=== PATIENT | male | born 1970 | race Caucasian/White ===

== ENCOUNTER 2017-02-19 13:09 | Inpatient (IN) | payer OTHER ==
[~2017-02-19] VITALS: Ht 182.9 cm; Wt 102.1 kg
--- NOTE | 2017-02-19 15:46 | NUR ---
Intake Assessment; Patient is a 46 year old male , AOX4, presented to [facility] to detoxify from Heroin, Valium, Xanax. Patient is from [facility] and arrived at intake office at approximately 1500. He is the primary source of information. Patient appears nervous but remained cooperative during interview. Admitting vital signs are as follows; BP 132/62, HR 79, Temperature 96.5, Respirations 18, SPO2 of 96%, weighs 225 lbs and height of 6ft, denies pain. Patient denies allergies and seizure history. Educated patient regarding unit policies and protocols, patient verbalized understanding. Will continue with further assessment when patient is up on the unit.
[2017-02-19] MEDS ORDERED: MAGNESIUM HYDROXIDE 30 ML LIQUID UDC PO PRN (16:30)
[2017-02-19] MEDS ORDERED: ACETAMINOPHEN 325 MG TABLET PO PRN (16:30)
[2017-02-19] MEDS ORDERED: LORAZEPAM 2 MG/1 ML VIAL IM PRN (16:30)
[2017-02-19] MEDS ORDERED: MIRALAX 17 GM POWD.PACK PO PRN (16:30)
[2017-02-19] MEDS ORDERED: MAG HYDROX/AL HYDROX/SIMETH 30 ML LIQUID UDC PO PRN (16:30)
[2017-02-19] MEDS ORDERED: LOPERAMIDE HCL 2 MG CAPSULE PO PRN (16:30)
[2017-02-19] MEDS ORDERED: LORAZEPAM 1 MG TABLET PO PRN ×2 (16:30)
--- NOTE | 2017-02-19 17:00 | NUR ---
Admission note; Patient is a 46 year old male , AOX4, presented to [facility] to detoxify from Heroin, Valium, Xanax. Patient is from [facility] and arrived at intake office at approximately 1500. He is the primary source of information. Patient appears nervous but remained cooperative during interview. Admitting vital signs are as follows; BP 132/62, HR 79, Temperature 96.5, Respirations 18, SPO2 of 96%, weighs 225 lbs and height of 6ft, denies pain. Patient denies allergies and seizure history. Educated patient regarding unit policies and protocols, patient verbalized understanding. Patient is admitted under the care of Dr. Lim to room 319. Discussed substance use history. Patient first started using Heroin when he was 15 year old, progressed to a daily use when he was 20 years old. He previously achieved two years of sobriety from 2154-2237. Currently he reports using heroin 1-2 grams via IV on a daily basis. Last use was on the day of present admission at 1100. He reported to MD that when he does not have heroin available, he will take methadone, last consumed methadone 40 mg the day prior to admission (02/18/17 in the morning). He also reported using benzodiazepines, most commonly alprazolam 1-3 mg on a daily basis, last consumed 1 mg on the morning of present admission at 1000. Patient also reported using Valium approximately 10mg (1-3 pills) , last taken on the day of admission at 0600. He has been to multiple treatment centers in the past, the latest being at [facility] six years ago. At the time of admission, the patient reports residual symptoms of recent heroin and alprazolam use without evidence of withdrawal. Past medical and psychiatric history discussed. Patient reported being diagnosed with anxiety, depression and PTSD. Patient 's PCP is Dr. Hooks. Patient currently lives at [facility] with his room mates. Current COWS is 3 and CIWA of 3. Skin check done with no significant findings. Dr. Lim evaluated patient at intake office. Safety measures in place. Will continue to monitor patient.
--- NOTE | 2017-02-19 17:05 | NUR ---
Additional information; Patient also reported using Marijuana on an intermittent basis. Last used the day of admission with unknown amount.
[2017-02-19] MEDS ORDERED: GABA-534 PO (17:17)
[2017-02-19] MEDS ORDERED: DIAZ10TA4 PO (17:20)
[2017-02-19] MEDS ORDERED: SERT100T PO (17:22)
[2017-02-19 17:26] LABS: BASOPHILS # (AUTO) 0.1 K/uL (0.0-8.0); BASOPHILS % (AUTO) 0.6 % (0.0-2.0); EOSINOPHILS # (AUTO) 0.2 K/uL (0.0-0.7); EOSINOPHILS % (AUTO) 2.3 % (0.0-7.0); HEMOGLOBIN 13.4 G/DL (14.0-18.0); LYMPHOCYTES # (AUTO) 2.3 K/UL (0.8-4.8); LYMPHOCYTES % (AUTO) 24.9 % (20.5-51.5); MEAN CORPUSCULAR HEMOGLOBIN 29.9 UUG (27.0-31.0); MEAN CORPUSCULAR HGB CONC 34 g/dL (32.0-37.0); MONOCYTES # (AUTO) 0.5 K/UL (0.1-1.30); MONOCYTES % (AUTO) 5.2 % (0.0-11.0); PLATELET COUNT (AUTO) 213 K/UL (150-450); RED BLOOD CELL COUNT(AUTO) 4.49 MIL/UL (4.7-6.1); WHITE BLOOD COUNT (AUTO) 9.1 K/UL (4.0-11.2)
[2017-02-19 17:33] LABS: ALANINE AMINOTRANSFERASE 34 U/L (16-63); ALKALINE PHOSPHATASE 67 U/L (50-136); ASPARTATE AMINOTRANSFERASE 18 U/L (15-37); BILIRUBIN,TOTAL 0.2 mg/dL (0.2-1.0); CARBON DIOXIDE 28 mmol/L (21-32); CHLORIDE 103 mmol/L (98-107); CREATININE 1.3 mg/dL (0.6-1.3); GLUCOSE 99 mg/dL (74-106); MAGNESIUM 2.1 mg/dL (1.8-2.4); POTASSIUM 4.1 mmol/L (3.5-5.1); TOTAL PROTEIN, SERUM 7.3 g/dL (6.4-8.2); UREA NITROGEN, BLOOD 16 mg/dL (7-18)
[2017-02-19 17:40] LABS: ETHANOL < 3 MG/DL (0-0)
[2017-02-19 17:41] LABS: THYROID STIMULATING HORMONE 2.105 mIU/mL (0.358-3.740)
[2017-02-19 17:47] LABS: *AMPHETAMINE, URINE NEGATIVE (NEGATIVE); *BARBITURATE, URINE NEGATIVE (NEGATIVE); *CANNABINOID, URINE POSITIVE (NEGATIVE); *COCCAINE, URINE NEGATIVE (NEGATIVE); *OPIATE, URINE POSITIVE (NEGATIVE); *PHENCYCLIDINE SCREEN,URINE NEGATIVE (NEGATIVE)
--- NOTE | 2017-02-19 18:56 | NUR ---
End of shift note; Patient is currently resting with eyes closed, respirations even and unlabored. Patient was evaluated by MD at intake office. All safety measures secured. Met all needs.
--- NOTE | 2017-02-19 19:45 | NUR ---
START OF SHIFT Received report from day shift nurse. Pt is lying in bed resting. He is a 46 yo male admitted to [facility] today for BZD and Opiate dependence. He is A&O and ambulatory. NKA, full code status, and on a regular diet. He has a PMH of PTSD, anxiety, and depression. On admission he reported using Xanax 1-3mg per day, heroin 1-2 grams per day, valium 10mg per day, and methadone intermittently only when heroin is not available. Pt is ordered a 4 day Ativan taper to start tomorrow with a one time order for tonight. Subutex induction possible for 6/ per MD orders. Pt reports anxiety, mild chills, mild stomach discomfort, and mild body aches. Fall precautions in place. Bed is down with call light in reach.
[2017-02-19 20:00] VITALS: BP 108/64
[2017-02-19] MEDS ORDERED: LORAZEPAM 1 MG TABLET PO SCH (21:00)
[2017-02-19] MEDS: GABAPENTIN 300 MG CAPSULE PO SCH (21:23)
[2017-02-20] VITALS (8 sets, daily range): BP systolic 95–129; BP diastolic 69–90
[2017-02-20] MEDS: CLONIDINE HCL 0.1 MG TABLET PO PRN ×2 (03:10→15:46)
[2017-02-20] MEDS: IBUPROFEN 600 MG TABLET PO PRN (03:11)
[2017-02-20] MEDS: LOPERAMIDE HCL 2 MG CAPSULE PO PRN (03:20)
--- NOTE | 2017-02-20 03:20 | NUR ---
PRN Clonidine, Ativan, Motrin, and Imodium administered Pt is awake in bed and reports feeling anxious and restless with chills, leg pain, headache, stomach discomfort, and diarrhea. He is observed to have restless legs and appears agitated. CIWA 16 and COWS 11. PRN Clonidine, Ativan, Motrin, and Imodium administered.
--- NOTE | 2017-02-20 04:20 | NUR ---
PRN Clonidine, Ativan, and Motrin reassessment PRN Clonidine, Ativan, and Motrin effective. Pt is lying comfortably in bed resting with eyes closed. Respirations even and unlabored. COWS 2 and CIWA 2. Safety measures in place.
--- NOTE | 2017-02-20 07:14 | NUR ---
END OF SHIFT Report provided to day shift nurse. Pt is lying in bed resting. He is a 46 yo male admitted to [facility] today for BZD and Opiate dependence. He is A&O and ambulatory. NKA, full code status, and on a regular diet. He has a PMH of PTSD, anxiety, and depression. On admission he reported using Xanax 1-3mg per day, heroin 1-2 grams per day, valium 10mg per day, and methadone intermittently only when heroin is not available. Pt is ordered a 4 day Ativan taper to start today. One time Ativan order administered at 2100. Pt woke up and PRN Ativan, Clonidine, Motrin, and Imodium administered. COWS 2 and CIWA 2 after PRN medications. He was able to fall back to sleep after medications. Subutex induction possible for today per MD orders. He drank 500mL and slept for 9 hours. Fall and seizure precautions in place. Bed is down with call light in reach.
--- NOTE | 2017-02-20 07:52 | NUR ---
Start of shift note; Patient is AOX4. Patient is a 46 year old male admitted on 02/19/17 for Opiate/ Benzodiazepine withdrawals. Patient received PRN medications last night noted to be effective. All safety measures secured. Patient is on fall and seizure precaution. Will continue to monitor patient.
[2017-02-20] MEDS ORDERED: TUBERCULIN,PURIF.PROT.DERIV. 5 TU/0.1 ML TEST ID ONE (09:00)
[2017-02-20] MEDS: SERTRALINE HCL 100 MG TABLET PO SCH (09:32)
[2017-02-20] MEDS: MULTIVITAMINS,THERAPEUTIC TABLET PO SCH (09:32)
[2017-02-20] MEDS: GABAPENTIN 300 MG CAPSULE PO SCH ×3 (09:32→20:37)
[2017-02-20] MEDS: LORAZEPAM 1 MG TABLET PO SCH ×3 (09:32→20:37)
[2017-02-20 14:09] LABS: HEPATITIS B SURFACE AG Negative (Negative)
--- NOTE | 2017-02-20 15:46 | NUR ---
PRN medication; Patient is complaining of agitation and chills. PRN Clonidine 0.1mg PO as per MD order. Will continue to monitor patient.
--- NOTE | 2017-02-20 16:46 | NUR ---
Re-assessment; Patient appears calm and comfortable. PRN medication is effective.
--- NOTE | 2017-02-20 18:32 | NUR ---
End of shift note; Patient is AOX4. Patient is a 46 year old male admitted for Opiate and Benzo dependence. Patient was placed on Ativan taper no adverse reactions noted. To avoid precipitative withdrawal, notify MD when patient is in need of Subutex dose/taper. Patient's current COWS score is 8 and CIWA score of 6. Patient is on fall and seizure precaution. All safety measures secured. Met all needs.
--- NOTE | 2017-02-20 19:50 | NUR ---
START OF SHIFT Received report from day shift nurse. Pt is lying in bed resting. He is a 46 yo male admitted to [facility] today for BZD and Opiate dependence. He is A&O and ambulatory. NKA, full code status, and on a regular diet. He has a PMH of PTSD, anxiety, and depression. On admission he reported using Xanax 1-3mg per day, heroin 1-2 grams per day, valium 10mg per day, and methadone intermittently only when heroin is not available. Pt started a 4 day Ativan taper today. MD to be contacted when COWS is appropriate to start Subutex. Pt presents with chills, body aches, anxiety, and restlessness. Fall precautions in place. Bed is down with call light in reach.
[2017-02-20] MEDS ORDERED: BUPRENORPHINE HCL 2 MG TAB.SUBL SL ONE ×2 (21:30→21:31)
--- NOTE | 2017-02-20 21:30 | NUR ---
MD Communication Pt is restless in bed with chills, leg aches, and anxiety. COWS 13 and CIWA [address] Lim with orders for one time Subutex. Pt refused the medication and any other PRN medication at this time. Explained to pt. the risks of refusal and benefits of the medication for management of withdrawal symptoms x3. Pt verbalized understanding and states, "I've been doing this for 30 years". MD cho
--- NOTE | 2017-02-20 22:30 | NUR ---
MD Communication Pt is restless in bed with chills, leg aches, hot and cold flashes and anxiety. He is noted to have nasal stuffiness and flushing. COWS 13 and CIWA 12. He continues to refuse Subutex and is requesting Gabapentin because "I know that works". Contacted Dr. Lim with orders for one time Gabapentin. Pt then refused the medication and is lying in bed resting. Explained the importance of medications compliance for the management of withdrawal symptoms. Advised pt. to use call light if necessary. Safety measures in place.
[2017-02-20] MEDS ORDERED: GABAPENTIN 300 MG CAPSULE PO ONE (22:45)
[2017-02-20] MEDS ORDERED: GABAPENTIN 300 MG CAPSULE ONE (22:46)
[2017-02-21] VITALS (7 sets, daily range): BP systolic 115–128; BP diastolic 70–83
[2017-02-21] MEDS: ONDANSETRON 4 MG/2 ML VIAL IM PRN (02:01)
[2017-02-21] MEDS: CLONIDINE HCL 0.1 MG TABLET PO PRN ×2 (02:02→21:07)
--- NOTE | 2017-02-21 02:05 | NUR ---
PRN Zofran, Clonidine, and one time Gabapentin Pt woke up and states "I can't take this". He is restless in bed, with nasal stuffiness, chills, hot and cold flashes, and nausea. COWS score 15 and CIWA 12. PRN Zofran IM and Clonidine administered. Pt requested to have his onetime order of Gabapentin that was refused earlier. MD cho.
[2017-02-21] MEDS: diphenhydrAMINE 50 MG CAPSULE PO PRN (02:15)
--- NOTE | 2017-02-21 02:17 | NUR ---
PRN Benadryl and one time Subutex Pt is restless in bed, with nasal stuffiness, chills, hot and cold flashes, and nausea. His arms and legs are kicking out in discomfort. COWS score 15 and CIWA 12. He reports "I think I'm ready for the subutex now". Administered one time order of Subutex that pt refused earlier and Benadryl. aware.
--- NOTE | 2017-02-21 02:35 | NUR ---
PRN Zofran IM reassessment PRN Zofran effective. Pt reports relief of nausea.
--- NOTE | 2017-02-21 03:30 | NUR ---
PRN Clonidine, Benadryl, one time gabapentin, and onetime subutex reassessment Clonidine, Benadryl Gabapentin, and Subutex effective. Pt is lying in bed resting with eyes closed. Respirations even and unlabored. Safety measures in place.
--- NOTE | 2017-02-21 07:15 | NUR ---
END OF SHIFT Report provided to day shift nurse. Pt is lying in bed resting. He is a 46 yo male admitted to [facility] today for BZD and Opiate dependence. He is A&O and ambulatory. NKA, full code status, and on a regular diet. He has a PMH of PTSD, anxiety, and depression. On admission he reported using Xanax 1-3mg per day, heroin 1-2 grams per day, valium 10mg per day, and methadone intermittently only when heroin is not available. Pt is ordered started a 4 day Ativan taper on 02/20. contacted when pt presented with s/s of opiate withdrawal. COWS was 15 and CIWA 12. PRN Clonidine, PRN Zofran IM, PRN Benadryl, onetime Gabapentin, and onetime Subutex. Last COWS 3 and CIWA 3. He drank 1000mL and slept for 7 hours. Bed is down with call light in reach.
--- NOTE | 2017-02-21 07:20 | NUR ---
Start of Shift Report from night nurse: Pt is a 46 y/o male here for Opiates r/t Heroin 1-2g/d Benzo r/t Xanax 1-3mg PO/d, Valium 10mg PO/d and Methamphetamine unknown dose with occs. use; 4 day Ativan taper ordered and Subutex orders with parameters and to call Dr. Lim With cows >/+ 12. Pt is a full code, regulr diet, NKA, fall and seizure precautions carried out as ordered. Hhx: PTSD, Anxiety, Depression and Multiple relapses at many detox centers. V/S stable. Skin is intact. PRN Subutex with COWS 15-12, gabapentin, Zofran IM, Clonidine and Benadryl to help the pt w/d and to sleep. Last COWS 3 CIWA 3. No new orders or recommendations endorsed to me. Pt is asleep in room. Will cont. to monitor the pt.
[2017-02-21] MEDS: LORAZEPAM 1 MG TABLET PO SCH ×4 (09:25→21:08)
[2017-02-21] MEDS: GABAPENTIN 300 MG CAPSULE PO SCH ×3 (09:25→21:07)
[2017-02-21] MEDS: MULTIVITAMINS,THERAPEUTIC TABLET PO SCH (09:25)
[2017-02-21] MEDS: SERTRALINE HCL 100 MG TABLET PO SCH (09:25)
[2017-02-21] MEDS ORDERED: BUPRENORPHINE HCL 2 MG TAB.SUBL SL PRN (15:00)
[2017-02-21] MEDS ORDERED: LORAZEPAM 1 MG TABLET PO ONE (17:45)
--- NOTE | 2017-02-21 18:49 | NUR ---
Medication Gxh-Afreovubppsehj-Gjhiel ONCE At 1700H during medication administration pt is in room anxious, flushed, frequent yawning, numbness and tingling, V/S stable, COW 9 CIWA 8 and pt states that he feels as if he needs a stronger dose of Ativan and that the Ativan 1mg scheduled at 1700h "probably won't be effective" I educated the pt on Subutex PRN yet he refused it. I notified Dr. Lim and new order for Ativan 2mg PO ONCE. I attempted to give it to the pt at 1844 and he was asleep in his room, so NON-Administration. Will endorse to the night nurse.
--- NOTE | 2017-02-21 19:33 | NUR ---
End of Shift Report to night nurse: Pt is a 46 y/o male here for Opiates r/t Heroin 1-2g/d , Benzo r/t Xanax 1-3mg PO/d, Valium 10mg PO/d and Methamphetamine unknown dose with occs. use; 4 day Ativan taper ordered and Subutex orders with parameters and to call Dr. Lim With cows >/+ 12. Pt is a full code, regular diet, NKA, fall and seizure precautions carried out as ordered. Hhx: PTSD, Anxiety, Depression and Multiple relapses at many detox centers. V/S stable. Skin is intact. No PRN's given during my shift. Pt refused to attend group therapy. No hallucinations, delusions or suicidal ideations noted. Last COWS 9 CIWA 8.
--- NOTE | 2017-02-21 20:30 | NUR ---
START OF SHIFT NOTE Pt is a 46 y/o male admitted for Heroin, Xanax, Valium, and Methadone dependence and use. Pt has NKA but reported a PMH of PTSD, anxiety, and depression. Per day shift nurse pt was placed on a 4 day Ativan taper and is tolerating medication well with no s/e or a/re reported. Pt didn't receive any PRNS during the day shift. Last COW: 9 and CIWA: 8 (1600). At this time the pt has just returned from having a smoke break and stated " I've been okay today." Pt denies any other pain/discomfort. Pt was encouraged to notify staff of any changes in condition or of any concerns. Pt verbalized an understanding. All safety measures in place; side rails up x 2, bed locked and in low position, and call light within reach. Will continue to monitor.
--- NOTE | 2017-02-21 21:07 | NUR ---
CLONIDINE PRN ADMINISTRATION Pt stated " I'm not comfortable. I'm sweating. I feel anxious. I just need something to help me relax." Clonidine 0.1 mg PO PRN was given Pt was encouraged to notify staff of any changes in condition or of any concerns. Pt verbalized an understanding. All safety measures in place. Will monitor for effectiveness.
--- NOTE | 2017-02-21 22:07 | NUR ---
CLONIDINE PRN REASSESSMENT Pt stated " I feel okay, but I don't know if it's going to last. I'm trying to stay away from Subutex." PRN effective. Pt was encouraged to notify staff of any changes in condition or of any concerns. Pt verbalized an understanding. All safety measures in place. Will continue to monitor.
[2017-02-22] VITALS: BP 101/66
[2017-02-22] MEDS: diphenhydrAMINE 50 MG CAPSULE PO PRN (00:14)
[2017-02-22] MEDS: METHOCARBAMOL 750 MG TABLET PO PRN (00:14)
--- NOTE | 2017-02-22 00:15 | NUR ---
ROBAXIN AND BENADRYL PRN ADMINISTRATION Pt stated " Can I have something to help me sleep and take away my body aches?" Benadryl 50 mg PO PRN and Robaxin 750 mg PO PRN was given. Pt was encouraged to notify staff of any changes in condition or of any concerns. Pt verbalized an understanding. All safety measures in place. Will monitor for effectiveness.
--- NOTE | 2017-02-22 01:15 | NUR ---
ROBAXIN AND BENADRYL PRN REASSESSMENT Pt is asleep in bed with no signs of discomfort/distress noted. Breathing is even and unlabored. Pt easily aroused by light touch. Pt stated " I feel okay right now, but it's not going to last I can tell. I'm going back to sleep." PRNS effective. All safety measures in place. Will continue to monitor.
--- NOTE | 2017-02-22 03:49 | NUR ---
SUBUTEX PRN ADMINISTRATION Pt is notably agitated and reports having withdrawal symptoms such as sweating, nausea, stuffy nose, teary eyes, and tremors. Pt's COW score at this time is 12. Subutex 4 mg PO PRN was given. Pt was encouraged to notify staff of any changes in condition or of any concerns. Pt verbalized an understanding. All safety measures in place. Will monitor for effectiveness.
[2017-02-22 04:00] VITALS: BP 128/86
--- NOTE | 2017-02-22 04:49 | NUR ---
SUBUTEX PRN REASSESSMENT Pt stated " I feel a lot better than I did a while ago. I can finally sleep now." COW score at this time: 6. PRN effective. Will continue to monitor.
--- NOTE | 2017-02-22 07:09 | NUR ---
END OF SHIFT NOTE Pt is a 46 y/o male admitted for Heroin, Xanax, Valium, and Methadone dependence and use. Pt has NKA but reported a PMH of PTSD, anxiety, and depression. Pt was placed on a 4 day Ativan taper and is tolerating medication well with no s/e or a/re reported. Pt received Benadryl 50 mg PO PRN, Robaxin 750 mg PO PRN, Clonidine 0.1 mg PO PRN, and Subutex 4 mg PO PRN during the shift. Pt slept for a total of 6 hours. Last COW: 6 (0449) and CIWA: 10 (0400). All safety measures in place; side rails up x 2, bed locked and in low position, and call light within reach. Will endorsed to the oncoming nurse.
--- NOTE | 2017-02-22 07:10 | NUR ---
Start of Shift Notes: Received patient in his room. Alert and oriented x 4. Able to make his needs known. Respirations even and unlabored. No SOB noted. Skin warm and dry to touch. Abdomen soft and non-distended with (+) BS in all 4 quadrants. No complains of N/V/D or constipation noted. Bladder non-distended. No complains of dysuria noted. Voids independently. Ambulatory ad abel with steady gait. Patient is a 46 year old male admitted for opiate and BZO dependence who was placed on a 4-day Ativan taper and PRN Subutex per COWS score. No adverse reactions noted. Has past medical hx of PTSD, depression and anxiety. NKA. FULL CODE. Regular diet. On fall and seizure precautions. Educated patient on his current plan of care and his medication regimen. Encouraged oral fluid intake and encouraged group participation to learn new skills to prevent relapse. Will continue to monitor closely.
[2017-02-22 08:00] VITALS: BP 127/82
[2017-02-22] MEDS: SERTRALINE HCL 100 MG TABLET PO SCH (09:08)
[2017-02-22] MEDS: MULTIVITAMINS,THERAPEUTIC TABLET PO SCH (09:09)
[2017-02-22] MEDS: GABAPENTIN 300 MG CAPSULE PO SCH ×4 (09:09→21:40)
[2017-02-22] MEDS: LORAZEPAM 1 MG TABLET PO SCH ×3 (09:09→21:40)
[2017-02-22] MEDS ORDERED: BUPRENORPHINE HCL 2 MG TAB.SUBL SL PRN (11:30)
[2017-02-22 12:00] VITALS: BP 135/92
--- NOTE | 2017-02-22 13:00 | NUR ---
Mid Shift Notes: Patient is socializing in group at this time. COWS 6/CIWA 6.
[2017-02-22] MEDS: BUPRENORPHINE HCL 2 MG TAB.SUBL SL PRN (15:36)
--- NOTE | 2017-02-22 15:36 | NUR ---
Subutex 2 mg SL given: Patient noted with pupil dilation, yawning, agitation, anxiety, difficulty staying still and restlessness, fine tremors also noted. COWS 10. PRN Subutex 2 mg SL given as ordered. Will monitor for effectiveness.
[2017-02-22 16:00] VITALS: BP 135/92
--- NOTE | 2017-02-22 16:06 | NUR ---
Re-assessment: COWS 5. PRN Subutex 2 mg SL was effective in reducing patient's withdrawal symptoms.
--- NOTE | 2017-02-22 18:48 | NUR ---
MD Communication: Patient states that PRN Benadryl is not effective with his sleep. Notified MD Parikh. Telephone orders obtained to DC Benadryl PRN and start patient on Trazodone 50 mg PO QHS PRN for sleep. Orders noted and carried out. MD is driving and unable to enter orders at this time.
--- NOTE | 2017-02-22 18:53 | NUR ---
End of Shift Notes: Patient is a 46 year old male admitted for opiate and BZO dependence who was placed on a 4-day Ativan taper and PRN Subutex as ordered. Prior to admission, patient was using 1-2 grams of opiate, 1-3 grams of BZO, 10 mg of Valium and intermittent use of Methadone. VS monitored closely q 4 hours. No significant abnormalities noted. Withdrawal symptoms were closely monitored. Patient presented with anxiety, agitation, tremor, sweats, and mild nausea. Offered Zofran but refused. Initial COWS 7/CIWA 9. Medicated patient with Subutex 2 mg SL as ordered. At 1536 due to COWS 10 with help after 30 minutes. Last COWS 5/CIWA 4. Participated in group and therapy sessions due to his withdrawal symptoms. Encouraged socialization and support provided. All needs met and attended. Will continue to monitor closely. Addendum: 02/22/17 at 1854 by CHELLY FREEMAN LVN Clarification: Participated in group and therapy sessions despite his withdrawal symptoms.
[2017-02-22 20:00] VITALS: BP 133/89
--- NOTE | 2017-02-22 20:30 | NUR ---
START OF SHIFT NOTE Pt is a 46 y/o male admitted for Heroin, Xanax, Valium, and Methadone dependence and use. Pt has NKA but reported a PMH of PTSD, anxiety, and depression. Per day shift nurse pt continues on a 4 day Ativan taper and is tolerating medication well with no s/e or a/re reported. Pt received Subutex 2 mg PO PRN during the day shift. Last COW: 5 and CIWA: 4 (1600). At this time the pt has just returned to his room and stated " Today is much better. I was grumpy yesterday. The Subutex helped." Pt denies any pain/discomfort. Pt was encouraged to notify staff of any changes in condition or of any concerns. Pt verbalized an understanding. All safety measures in place; side rails up x 2, bed locked and in low position, and call light within reach. Will continue to monitor.
[2017-02-23] VITALS: BP 134/84
[2017-02-23] MEDS: CLONIDINE HCL 0.1 MG TABLET PO PRN ×3 (01:44→22:03)
--- NOTE | 2017-02-23 01:44 | NUR ---
CLONIDINE PRN ADMINISTRATION Pt stated " Can I have my Clonidine? I'm starting to sweat again and I feel anxious." Clonidine 0.1 mg PO PRN was given. Pt was encouraged to notify staff of any changes in condition or of any concerns. Pt verbalized an understanding. All safety measures in place. Will monitor for effectiveness.
--- NOTE | 2017-02-23 02:44 | NUR ---
CLONIDINE PRN REASSESSMENT Pt stated " I feel much better." PRN effective. Pt was encouraged to notify staff of any changes in condition or of any concerns. Pt verbalized an understanding. All safety measures in place. Will continue to monitor.
--- NOTE | 2017-02-23 04:00 | NUR ---
COW, CIWA, AND VITALS REFUSED Pt refused to be assessed and have vitals taken at this time. Pt was encouraged x 3 with risks and benefits explained, but the pt still refused. All safety measures in place. Will continue to monitor. Addendum: 02/23/17 at 0443 by EDEL NAPIER LVN Amended: Links added.
--- NOTE | 2017-02-23 07:20 | NUR ---
Start of Shift Report from night nurse: Pt is a 46 y/o male here for Opiates r/t Heroin 1-2g/d Benzo r/t Xanax 1-3mg PO/d, Valium 10mg PO/d and Methamphetamine unknown dose with occs. use; 4 day Ativan taper ordered and Subutex orders with parameters and to call Dr. Lim With COWS >/+ 12. Pt is a full code, regular diet, NKA, fall and seizure precautions carried out as ordered. Hhx: PTSD, Anxiety, Depression & Multiple relapses at many detox centers. V/S stable. Skin is intact. Last COWS 4 CIWA 3. No new orders or recommendations endorsed to me. Pt is asleep in room. Will cont. to monitor the pt.
--- NOTE | 2017-02-23 07:39 | NUR ---
END OF SHIFT NOTE Pt is a 46 y/o male admitted for Heroin, Xanax, Valium, and Methadone dependence and use. Pt has NKA but reported a PMH of PTSD, anxiety, and depression. Pt continues on a 4 day Ativan taper and is tolerating medication well with no s/e or a/re reported. Pt received Clonidine 0.1 mg PO PRN during the shift. Pt slept for a total of 4 hours. Last COW: 4 CIWA: 3 (0000). All safety measures in place; side rails up x 2, bed locked and in low position, and call light within reach. Will endorsed to the oncoming nurse
[2017-02-23 08:00] VITALS: BP 147/87
[2017-02-23] MEDS: ONDANSETRON 4 MG/2 ML VIAL IM PRN (08:10)
[2017-02-23] MEDS: BUPRENORPHINE HCL 2 MG TAB.SUBL SL PRN (08:17)
[2017-02-23] MEDS: MULTIVITAMINS,THERAPEUTIC TABLET PO SCH (08:17)
[2017-02-23] MEDS: SERTRALINE HCL 100 MG TABLET PO SCH (08:17)
[2017-02-23] MEDS: GABAPENTIN 300 MG CAPSULE PO SCH ×4 (08:17→22:03)
[2017-02-23] MEDS: LORAZEPAM 1 MG TABLET PO SCH ×2 (08:17→22:02)
--- NOTE | 2017-02-23 08:23 | NUR ---
PRN Medication Administration Pt is now awake in his room with severe anxiety & irritability, sitting on edge of bed restless with rocking, c/o N/V, tremors observed, flushed, nasal congestion, numbness and tingling, V/S stable, COWS 11 CIWA 11; PRN Zofran 4mg IM and Subutex 2mg SL given with scheduled Ativan 1mg and other medications all given as ordered. Will reassess in 30 minutes-1H.
[2017-02-23] MEDS: LOPERAMIDE HCL 2 MG CAPSULE PO PRN (09:11)
--- NOTE | 2017-02-23 09:20 | NUR ---
Reassessment & PRN Medication Administration Pt c/o large bout of diarrhea with an incontinent episode but denies nausea, very anxiety and irritable, upset re: his diarrhea, V/S stable, COWS 16; I notified Dr. Lim, Zofran is effective, PRN Imodium 4mg given PRN as ordered for the first bout of diarrhea. No new orders at this time. Will reassess in 1H.
[2017-02-23] MEDS ORDERED: BUPRENORPHINE HCL 2 MG TAB.SUBL SL ONE (10:45)
--- NOTE | 2017-02-23 10:52 | NUR ---
New Order Subutex, Non-Medication Administration, Reassessment, PRN Medication Administration New Order for Subutex 4mg ONCE s/p Dr. Lim's evaluations, yet pt is very agitated uncooperative and angry during and after explaining the New Order is "Subutex 4mg ONCE" from Dr. Lim and that there is not scheduled Subutex 4mg but only the Subutex 2mg PRN which has to be with in parameters of his condition. The pt refused the Subutex 4mg ONCE dose and states that he only wants the Subutex 2mg PRN Q4H when the dose is next scheduled to be given. Pt states that he feels as if he is going to have another bout of diarrhea; PRN Imodium 2mg given PRN as ordered and notified Dr. Lim of pt's refusal. Will reassess in 1H.
[2017-02-23 12:00] VITALS: BP 127/76
--- NOTE | 2017-02-23 12:00 | NUR ---
Reassessment Pt denies diarrhea and no N/V noted; 2nd dose of PRN Imodium 2mg is effective. Will cont to monitor the pt.
[2017-02-23] MEDS ORDERED: BUPRENORPHINE HCL 2 MG TAB.SUBL SL PRN ×2 (12:15)
[2017-02-23] MEDS ORDERED: LORAZEPAM 1 MG TABLET PO PRN (12:15)
[2017-02-23] MEDS: ONDANSETRON ODT 4 MG TAB.RAPDIS SL PRN (12:51)
[2017-02-23 16:00] VITALS: BP 153/101
--- NOTE | 2017-02-23 16:45 | NUR ---
PRN Medication Administration Pt is in his room with moderate anxiety, c/o ab cramps and BP is 153/101 HR 90; PRN Clonidine 0.1mg and Bentyl 20mg given PRN as ordered with scheduled gabapentin. Will reassess in 1H.
[2017-02-23] MEDS: DICYCLOMINE HCL 20 MG TABLET PO PRN (16:55)
--- NOTE | 2017-02-23 17:25 | NUR ---
Reassessment Pt is getting ready to go for dinner, BP is stable and pt denies stomach cramps; Clonidine and Bentyl are effective. Will cont. to monitor the pt.
--- NOTE | 2017-02-23 18:54 | NUR ---
End of Shift Report to night nurse: Pt is a 46 y/o male here for Opiates r/t Heroin 1-2g/d , Benzo r/t Xanax 1-3mg PO/d, Valium 10mg PO/d and Methamphetamine unknown dose with occs. use; 4 day Ativan taper ordered and Subutex orders with parameters and to call Dr. Lim With cows >/+ 12. Pt is a full code, regular diet, NKA, fall and seizure precautions carried out as ordered. Hhx: PTSD, Anxiety, Depression and Multiple relapses at many detox centers. BP is elevated at 153/101 so PRN Clonidine 0.1mg given at 1645 with PRN Bentyl 20mg for stomach cramps . PRN: Subutex 2mg given with PRN Zofran 4mg IM with COWS 11. PRN Imodium 4mg given this morning at 0911 for large bout of diarrhea, PRN Imodium 2mg given for another small bout 1052a. Pt denies chest pain and no SOB during my shift. Skin is intact. Pt was excused from group activity and group therapy r/t lethagy and weakness. No hallucinations, delusions or suicidal ideations noted. Last COWS 5 CIWA 5.
--- NOTE | 2017-02-23 19:15 | NUR ---
START OF SHIFT NOTE : Pt is a 46 y/o male here for Opiates r/t Heroin 1-2g/d , Benzo r/t Xanax 1-3mg PO/d, Valium 10mg PO/d and Methamphetamine unknown dose with occs. use; 4 day Ativan taper ordered and Subutex orders with parameters and to call Dr. Lim With cows >/+ 12. Pt is a full code, regular diet, NKA, fall and seizure precautions carried out as ordered. Pt denies chest pain and no SOB during my shift. Skin is intact. Pt was excused from group activity and group therapy r/t lethargy and weakness. No hallucinations, delusions or suicidal ideations noted. Pt. is smoking with other clients right now. . All safety measures in the place by hospital policy: Call light within reach; bed locked and in the lowest position; padded rails up x 2. Will continue to monitor and offer help.
[2017-02-23 20:00] VITALS: BP 137/95
--- NOTE | 2017-02-23 21:00 | NUR ---
PRN TYLENOL, TRAZADONE Pt. complains of sleeplessness and flashes. PRN COLONIDINE, TRAZODONE given as ordered. All safety measures in the place by hospital policy: Call light within reach; bed locked and in the lowest position; padded rails up x 2. Will continue to monitor and offer help.
--- NOTE | 2017-02-23 21:55 | NUR ---
REASSESSMENT CLONIDINE, TRAZODONE Pt. is sleeping, RR=16, unlabored and even. . All safety measures in the place by hospital policy: Call light within reach; bed locked and in the lowest position; padded rails up x 2. Will continue to monitor and offer help.
[2017-02-23] MEDS: TRAZODONE 50 MG TABLET PO PRN (22:03)
--- NOTE | 2017-02-24 06:44 | NUR ---
END OF SHIFT NOTE : Pt is a 46 y/o male here for Opiates r/t Heroin 1-2g/d , Benzo r/t Xanax 1-3mg PO/d, Valium 10mg PO/d and Methamphetamine unknown dose with occ. use; 4 day Ativan taper ordered and Subutex orders with parameters and to call Dr. Lim With cows >/+ 12. Pt is a full code, regular diet, NKA, fall and seizure precautions carried out as ordered. Pt denies chest pain and no SOB during my shift. Skin is intact. Pt remains compliant with the treatment plan. PRN CLONIDINE, TRAZODONE were given during my shift. V/S remain WNL. RR=16, even and unlabored, lungs clear upon auscultation, abdomen soft and non- distended. Pt denies nausea, vomiting and diarrhea. LAST CIWA=3 ,COWS=2 at 0400 , INTAKE=1,355 ml, voided x 2, slept 7 hours. All safety measures in the place by hospital policy: Call light within reach; bed locked and in the lowest position; padded rails up x2. Will continue to monitor and offer help.
--- NOTE | 2017-02-24 07:53 | NUR ---
START OF SHIFT NOTE Received report from night nurse, 46 year old male admitted for BENZO and Opiate dependence. NKA, full code status, and on a regular diet. Pt has a PMH of PTSD, anxiety, and depression. On admission Pt reported using Xanax 1-3mg per day, heroin 1-2 grams per day, Valium 10mg per day, and methadone intermittently only when heroin is not available. Pt is ordered started a 4 day Ativan taper and notify MD when pt presented with s/s of opiate withdrawal. Per endorsement pt received PRN Trazodone/Clonidine effective per night nurse. Last CIWA-3, COWS-2, slept for 7 hours. Patient received in room, awake alert and oriented x4, educated regarding plan of care and medication regimen for the day with good verbal understanding. Safety measures in place. call light kept with in reach, will continue to monitor.
[2017-02-24 08:00] VITALS: BP 105/70
[2017-02-24] MEDS: MULTIVITAMINS,THERAPEUTIC TABLET PO SCH (08:32)
[2017-02-24] MEDS: GABAPENTIN 300 MG CAPSULE PO SCH ×4 (08:32→21:42)
[2017-02-24] MEDS: SERTRALINE HCL 100 MG TABLET PO SCH (08:33)
[2017-02-24] MEDS: HYDROXYZINE PAMOATE 25 MG CAPSULE PO PRN (08:41)
[2017-02-24] MEDS: ONDANSETRON ODT 4 MG TAB.RAPDIS SL PRN ×2 (08:41→15:11)
[2017-02-24] MEDS: METHOCARBAMOL 750 MG TABLET PO PRN (08:41)
--- NOTE | 2017-02-24 08:41 | NUR ---
PRN TYLENOL, ZOFRAN,ROBAXIN,VISTARIL Pt. complains of nausea no emesis reported by the pt, muscle aches, headache, anxiety, Non pharmacological intervention ineffective. Administered PRN Zofran, Tylenol, Robaxin, Vistaril as ordered. All safety measures in the place by hospital policy: Call light within reach; bed locked and in the lowest position; padded rails up x 2. Will continue to monitor and reassess the pt. Addendum: 02/24/17 at 1103 by IVONNE EASLEY LVN Headache-12/24.
--- NOTE | 2017-02-24 09:11 | NUR ---
MARIANNA REASSESSMENT Upon reassessment pt reported medication effective nausea improved. Will cont to monitor.
--- NOTE | 2017-02-24 09:41 | NUR ---
REASSESSMENT Upon reassessment pt reported medications were effective feeling less anxious, muscle cramps , headache 09/25. Will cont to monitor.
[2017-02-24 12:00] VITALS: BP 130/82
[2017-02-24] MEDS: IBUPROFEN 600 MG TABLET PO PRN (12:15)
--- NOTE | 2017-02-24 12:15 | NUR ---
PRN MOTRIN Pt. complains of general body aches Non pharmacological intervention ineffective. Administered PRN Motrin as ordered. All safety measures in the place by hospital policy: Call light within reach; bed locked and in the lowest position; padded rails up x 2. Will continue to monitor and reassess the pt. Addendum: 02/24/17 at 1416 by IVONNE EASLEY LVN pt reported pain scale 4/10
--- NOTE | 2017-02-24 13:15 | NUR ---
REASSESSMENT Upon reassessment pt reported medications were effective body aches subside 10/26. Will cont to monitor.
[2017-02-24 13:30] LABS: *AMPHETAMINE, URINE NEGATIVE (NEGATIVE); *BARBITURATE, URINE NEGATIVE (NEGATIVE); *CANNABINOID, URINE POSITIVE (NEGATIVE); *COCCAINE, URINE NEGATIVE (NEGATIVE); *OPIATE, URINE POSITIVE (NEGATIVE); *PHENCYCLIDINE SCREEN,URINE NEGATIVE (NEGATIVE)
[2017-02-24] MEDS ORDERED: BUPRENORPHINE HCL 2 MG TAB.SUBL SL ONE ×2 (14:30→15:30)
[2017-02-24] MEDS ORDERED: LORAZEPAM 1 MG TABLET PO ONE ×2 (14:30→15:45)
[2017-02-24] MEDS ORDERED: KETOROLAC TROMETHAMINE 30 MG INJ IM PRN (15:00)
[2017-02-24] MEDS: BACLOFEN 20 MG TABLET PO SCH ×2 (15:00→21:42)
--- NOTE | 2017-02-24 15:11 | NUR ---
PRN ZOFRAN Pt c/o nausea, PRN Zofran administered as ordered. Will cont to monitor.
--- NOTE | 2017-02-24 15:41 | NUR ---
REASSESSMENT Pt reported medication effective nausea improved no emesis noted.
[2017-02-24 16:00] VITALS: BP 134/81
--- NOTE | 2017-02-24 16:00 | NUR ---
communication Pt noted to have a CIWA of 20 and states that he has hallucinations, Dr Lim and Dr Cervantes notified. Dr Lim ordered 1x ativan 2mg PO. Dr Cervantes ordered seroquel 25mg PO Q4H PRN hallucinations. Orders entered, unable to enter orders. Addendum: 02/24/17 at 1936 by JEEVAN CHOWDHURY RN Pt placed on a 1:1 for safety.
[2017-02-24] MEDS ORDERED: QUETIAPINE FUMARATE 25 MG TABLET PO PRN (16:15)
--- NOTE | 2017-02-24 17:00 | NUR ---
REASSESSMENT Pt reported medication effective no hallucination, anxiety decreased, able to site still, CIWA noted -5. Will cont to monitor.
--- NOTE | 2017-02-24 18:30 | NUR ---
1:1 D/C Pt reported that " I am feeling fine not hearing or seeing anything" Pt noted walking around with steady gait. CIWA noted-5. Discontinued 1:1 MD notified. All safety measures in place. Will con to monitor.
[2017-02-24] MEDS ORDERED: NAPHAZOLINE/PHENIR OPHT DROP 15 ML BOTTLE EACHEYE PRN (19:00)
--- NOTE | 2017-02-24 19:15 | NUR ---
Start of Shift Patient Received. Patient is in activities room participating in group meeting. Patient is a 46 year old male, admitted on 02/19/17 for Opiate and Benzo Withdrawal, under the care of Dr. Lim. Patient received a 4 day Ativan taper with orders to notify MD for increased signs of Opiate withdrawal. Patient verbalizes no known allergies, full code, following a regular diet, placed on fall and seizure precautions, skin noted intact. Past medical history noted as PTSD, Anxiety, and Depression. Patient was given PRN Zofran X2, Tylenol, Robaxin, and Vistaril, and Motrin, and Ix Dose of Ativan. All PRN Medications noted to be effective. Patient discharge orders are tentative for tomorrow 02/25/17 afternoon. All needs attended to promptly. Will continue plan of care as ordered.
--- NOTE | 2017-02-24 19:24 | NUR ---
END OF SHIFT NOTE Gave report to night nurse, 46 year old male admitted for BENZO and Opiate dependence. NKA, full code status, and on a regular diet. Pt has a PMH of PTSD, anxiety, and depression. On admission Pt reported using Xanax 1-3mg per day, heroin 1-2 grams per day, Valium 10mg per day, and methadone intermittently only when heroin is not available. During shift pt received PRN medications noted to be effective. Vital signs stable. Patient encouraged to attend group therapies/sessions to learn new coping skills to prevent relapse. patient denies any SI/HI. Last CIWA-5, COWS-5. Safety measures in place. call light kept with in reach. patient endorsed to hematology nurse educator nurse, all pertinent information discussed. Pt endorsed to Night nurse in stable condition.
[2017-02-24 20:30] VITALS: BP 136/85
[2017-02-24] MEDS: CLONIDINE HCL 0.1 MG TABLET PO PRN (21:41)
--- NOTE | 2017-02-24 21:41 | NUR ---
PRN Medication Administration Patient is noted returning from smoking patio. Patient is verbalizing increased anxiety and agitation. All non pharmacological interventions noted not effective. Patient given PRN Clonidine as per orders. Will continue to monitor
--- NOTE | 2017-02-24 22:40 | NUR ---
PRN Medication Reassessment Patient noted in bed watching TV. Patient verbalized anxiety had subsided. PRN Clonidine noted to be effective. Will continue to monitor.
[2017-02-24] MEDS: TRAZODONE 50 MG TABLET PO PRN (23:26)
--- NOTE | 2017-02-24 23:30 | NUR ---
PRN Medication Administration Patient noted pacing the unit. Patient verbalizing "Im just thinking about my discharge. I dont think Im ready." Encourage patient to verbalize feelings and offered support. Patient also verbalizing increased feelings of agitation and inability of falling asleep. PRN Trazodone and Seroquel administered. Will continue to monitor.
[2017-02-25 00:25] VITALS: BP 122/74
--- NOTE | 2017-02-25 01:00 | NUR ---
PRN Medication Reassessment Patient is noted in bed sleeping. Breathing even and non labored. No signs of pain or discomfort noted. Patient was given PRN Seroquel and Trazodone. Medication noted to be effective as evidence by patient by patient resting in bed with no discomfort noted. Respirations noted 16. All needs attended to promptly. Will continue to monitor.
[2017-02-25 04:44] VITALS: BP 117/62
--- NOTE | 2017-02-25 07:09 | NUR ---
End of Shift Patient is in bed sleeping. Breathing even and non labored. Patient is a 46 year old male, admitted on 02/19/17 for Opiate and Benzo Withdrawal, under the care of Dr. Lim. Patient received a 4 day Ativan taper with orders to notify MD for increased signs of Opiate withdrawal. Patient verbalizes no known allergies, full code, following a regular diet, placed on fall and seizure precautions, skin noted intact. Past medical history noted as PTSD, Anxiety, and Depression. Patient was give PRN PRN Clonidine, Seroquel, and Trazodone. All medications noted to be effective. Patient discharge orders are tentative for today 02/25/17 afternoon. All needs attended to promptly. Will continue plan of care as ordered.
[2017-02-25 08:00] VITALS: BP 131/77
--- NOTE | 2017-02-25 08:01 | NUR ---
START OF SHIFT NOTE Received report from night nurse, 46 year old male admitted for BENZO and Opiate dependence. NKA, full code status, and on a regular diet. Pt has a PMH of PTSD, anxiety, and depression. On admission Pt reported using Xanax 1-3mg per day, heroin 1-2 grams per day, Valium 10mg per day, and methadone intermittently only when heroin is not available. Pt is ordered started a 4 day Ativan taper and notify MD when pt presented with s/s of opiate withdrawal. Per endorsement pt received PRN Trazodone/Clonidine/Seroquel effective per night nurse. Last CIWA-0, COWS-1, slept for 5 hours. Patient received in room, awake alert and oriented x4, educated regarding plan of care and medication regimen for the day with good verbal understanding. Safety measures in place. call light kept with in reach, will continue to monitor.
[2017-02-25] MEDS: MULTIVITAMINS,THERAPEUTIC TABLET PO SCH (08:42)
[2017-02-25] MEDS: SERTRALINE HCL 100 MG TABLET PO SCH (08:42)
[2017-02-25] MEDS: BACLOFEN 20 MG TABLET PO SCH ×3 (08:42→20:16)
[2017-02-25] MEDS: GABAPENTIN 300 MG CAPSULE PO SCH ×4 (08:43→20:16)
[2017-02-25 12:00] VITALS: BP 145/88
[2017-02-25] MEDS: CLONIDINE HCL 0.1 MG TABLET PO PRN ×2 (12:45→23:33)
[2017-02-25] MEDS: IBUPROFEN 600 MG TABLET PO PRN (12:45)
--- NOTE | 2017-02-25 12:45 | NUR ---
PRN CLONIDINE/MOTRIN Pt is alert awake oriented x4 came to nursing station and reports feeling anxious and restless with chills, leg pain, headache, non pharmacological intervention ineffective. Pt medicated with PRN Clonidine0.1 mg 1 tab, Motrin 600mg Po 1 tab as ordered. All safety measures, Call light within reach. Will cont to monitor. Addendum: 02/25/17 at 1534 by IVONNE EASLEY LVN pt reported pain 01/23.
--- NOTE | 2017-02-25 13:45 | NUR ---
REASSESSMENT Upon assessment pt reported anxiety chills, leg pain and headache (2/10) decreased. Will cont to monitor.
[2017-02-25] MEDS ORDERED: BUPRENORPHINE HCL 2 MG TAB.SUBL SL ONE (14:45)
--- NOTE | 2017-02-25 15:16 | NUR ---
SUBUTEX X1 DOSE Pt c/o severe body pain, difficulty sitting still, chills, anxiety, COWS score noted 13. Pt medicated with x1 dose of Subutex as ordered. All safety measures in place, call light within reach. Will cont to monitor and reassess.
--- NOTE | 2017-02-25 15:45 | NUR ---
REASSESSMENT Pt reported medication effective anxiety decreased, able to sit still, COWS noted -6. Will cont to monitor.
[2017-02-25 16:00] VITALS: BP 140/84
--- NOTE | 2017-02-25 19:13 | NUR ---
END OF SHIFT NOTE Gave report to night nurse, 46 year old male admitted for BENZO and Opiate dependence. NKA, full code status, and on a regular diet. Pt has a PMH of PTSD, anxiety, and depression. On admission Pt reported using Xanax 1-3mg per day, heroin 1-2 grams per day, Valium 10mg per day, and methadone intermittently only when heroin is not available. During shift pt presented with anxiety pain, chills PRN medications received noted to be effective. Vital signs stable. Patient encouraged to attend group therapies/sessions to learn new coping skills to prevent relapse. patient denies any SI/HI. Last CIWA-3, COWS-4. Safety measures in place. call light kept with in reach. patient endorsed to shift superintendent caustic cresylate nurse, all pertinent information discussed. Pt endorsed to Night nurse in stable condition.
[2017-02-25] MEDS ORDERED: HYDR-3895 PO (19:27)
[2017-02-25] MEDS ORDERED: GABA-534 PO (19:27)
[2017-02-25] MEDS ORDERED: TRAZ-144 PO (19:27)
[2017-02-25] MEDS ORDERED: DICY20TA28 PO (19:27)
[2017-02-25] MEDS ORDERED: CLON0.1T14 PO (19:27)
[2017-02-25] MEDS ORDERED: IBUP-1955 PO (19:27)
[2017-02-25] MEDS ORDERED: BACL20TA PO (19:27)
--- NOTE | 2017-02-25 19:30 | NUR ---
START OF SHIFT NOTE Pt is a 46 y/o male admitted for Heroin, Xanax, Valium, and Methadone dependence and use. Pt has NKA but reported a PMH of PTSD, anxiety, and depression. Per day shift nurse pt completed taper and is scheduled for discharge tomorrow. Pt received Subutex 2 mg PO x 1, Motrin 600 mg PO PRN, and Clonidine 0.1 mg PO PRN during the day shift. Last COW: 4 and CIWA: 3 (1600). At this time the pt is in his room laying down. Pt stated " I don't know why I've been feeling so sick today. No pain but just out of no where I start feeling sick." Pt denies any pain/discomfort. Pt was encouraged to notify staff of any changes in condition or of any concerns. Pt verbalized an understanding. All safety measures in place; side rails up x 2, bed locked and in low position, and call light within reach. Will continue to monitor.
[2017-02-25 20:00] VITALS: BP 130/87
[2017-02-25] MEDS: ONDANSETRON 4 MG/2 ML VIAL IM PRN (20:21)
--- NOTE | 2017-02-25 20:21 | NUR ---
ZOFRAN PRN ADMINISTRATION Pt stated " I feel extremely nauseous right now. Can I have a shot of Zofran?" Zofran 4 mg/2 ml IM PRN given. Pt was encouraged to notify staff of any changes in condition or of any concerns. Pt verbalized an understanding. All safety measures in place. Will monitor for effectiveness.
--- NOTE | 2017-02-25 20:51 | NUR ---
MARIANNA PRN REASSESSMENT Pt stated "I feel better." PRN effective. Pt was encouraged to notify staff of any changes in condition or of any concerns. Pt verbalized an understanding. All safety measures in place. Will continue to monitor.
[2017-02-25] MEDS: LOPERAMIDE HCL 2 MG CAPSULE PO PRN (20:59)
--- NOTE | 2017-02-25 20:59 | NUR ---
IMODIUM PRN ADMINISTRATION Pt stated " I've been having diarrhea. Can I have Imodium?" Imodium 4 mg PO PRN was given. Pt was encouraged to notify staff of any changes in condition or of any concerns. Pt verbalized an understanding. All safety measures in place. Will monitor for effectiveness.
--- NOTE | 2017-02-25 21:59 | NUR ---
IMODIUM PRN REASSESSMENT Pt stated " Well I haven't went to the bathroom again." PRN effective. Pt was encouraged to notify staff of any changes in condition or of any concerns. Pt verbalized an understanding. All safety measures in place. Will continues to monitor.
--- NOTE | 2017-02-25 23:33 | NUR ---
CLONIDINE PRN ADMINISTRATION Pt stated " I just can't relax. I need something to help me calm down. What about Clonidine?" Clonidine 0.1 mg PO PRN given. Pt was encouraged to notify staff of any changes in condition or of any concerns. Pt verbalized an understanding. All safety measures in place. Will monitor for effectiveness.
[2017-02-26] VITALS: BP 149/97
--- NOTE | 2017-02-26 01:33 | NUR ---
CLONIDINE PRN REASSESSMENT Pt stated " I feel a little more relaxed." PRN effective. Pt was encouraged to notify staff of any changes in condition or of any concerns. Pt verbalized an understanding. All safety measures in place. Will continue to monitor.
[2017-02-26] MEDS: TRAZODONE 50 MG TABLET PO PRN (02:10)
--- NOTE | 2017-02-26 02:10 | NUR ---
TRAZODONE PRN ADMINISTRATION Pt stated " Can I have something to help me sleep?" Trazodone 50 mg PO PRN was given. Pt was encouraged to notify staff of any changes in condition or of any concerns. Pt verbalized an understanding. All safety measures in place. Will monitor for effectiveness.
[2017-02-26 02:49] LABS: *AMPHETAMINE, URINE NEGATIVE (NEGATIVE); *BARBITURATE, URINE NEGATIVE (NEGATIVE); *CANNABINOID, URINE POSITIVE (NEGATIVE); *COCCAINE, URINE NEGATIVE (NEGATIVE); *OPIATE, URINE NEGATIVE (NEGATIVE); *PHENCYCLIDINE SCREEN,URINE NEGATIVE (NEGATIVE)
--- NOTE | 2017-02-26 03:10 | NUR ---
TRAZODONE PRN REASSESSMENT Pt is asleep in bed with no signs of discomfort/distress noted. Pt's breathing is even and unlabored. PRN effective. All safety measures in place. Will continue to monitor.
--- NOTE | 2017-02-26 04:04 | NUR ---
COW, CIWA, AND VITALS REFUSED Pt refused to be assessed and have vitals taken at this time. Pt was encouraged x 3 with risks and benefits explained, but the pt still refused. All safety measures in place. Will continue to monitor. Addendum: 02/26/17 at 0405 by EDEL NAPIER LVN Amended: Links added.
--- NOTE | 2017-02-26 07:23 | NUR ---
END OF SHIFT NOTE Pt is a 46 y/o male admitted for Heroin, Xanax, Valium, and Methadone dependence and use. Pt has NKA but reported a PMH of PTSD, anxiety, and depression. Pt completed taper and is scheduled for discharge today. UA results filed appropriately in the pt's chart. Pt received Clonidine 0.1 mg PO PRN, Imodium 4 mg PO PRN, Trazodone 1 during the shift, and Zofran 4 mg/2ml IM PRN during the shift. Pt slept for a total of 5 hours. Last COW: 6 CIWA: 2 (0000). All safety measures in place; side rails up x 2, bed locked and in low position, and call light within reach. Will endorse to the oncoming nurse.
--- NOTE | 2017-02-26 07:30 | NUR ---
START OF SHIFT NOTE Patient is alert X [address]. Patient is laying in bed and slowly waking up. Stated he was "Dreaming good". Patient slept 5 hours last per night nurse. Respirations are even and unlabored. Last CIWA 2 COWS 6 per night nurse. Patient has completed a 4 day Ativan taper, tolerated well. All safety measures in place, bed in lowest position, bed is locked, and side rails are up X2. Plan is for patient to be discharged home today. Will continue to monitor patient until he leaves the unit.
[2017-02-26 08:00] VITALS: BP 104/82
[2017-02-26] MEDS: SERTRALINE HCL 100 MG TABLET PO SCH (08:21)
[2017-02-26] MEDS: BACLOFEN 20 MG TABLET PO SCH ×2 (08:21→14:07)
[2017-02-26] MEDS: MULTIVITAMINS,THERAPEUTIC TABLET PO SCH (08:21)
[2017-02-26] MEDS: GABAPENTIN 300 MG CAPSULE PO SCH ×3 (08:21→16:34)
[2017-02-26 12:00] VITALS: BP 141/69
[2017-02-26] MEDS: IBUPROFEN 600 MG TABLET PO PRN (12:20)
--- NOTE | 2017-02-26 12:21 | NUR ---
PRN MEDICATION Patient reports pain 5 out of 10 in his calfs. Motrin 600mg given. will reassess patient shortly
--- NOTE | 2017-02-26 12:55 | NUR ---
PRN REASSESSMENT Reassessed patient. He states,"feeling better after Motrin". Will continue to monitor patient
[2017-02-26] MEDS: CLONIDINE HCL 0.1 MG TABLET PO PRN (14:07)
[2017-02-26] MEDS: HYDROXYZINE PAMOATE 25 MG CAPSULE PO PRN (14:08)
[2017-02-26] MEDS: DICYCLOMINE HCL 20 MG TABLET PO PRN (14:08)
[2017-02-26] MEDS: ONDANSETRON ODT 4 MG TAB.RAPDIS SL PRN (14:08)
--- NOTE | 2017-02-26 14:13 | NUR ---
PRN MEDICATION Patient received Zofran and Bentyl for upset cramping stomach. Patient states,"not feeling well". Will continue to monitor patient and reassess.
--- NOTE | 2017-02-26 14:15 | NUR ---
PRN Medication Patient complaining of anxiety and leg pain. Pain reported 7 out of 10. Catapres and Visceral given. Will continue to monitor and reassess patient.
--- NOTE | 2017-02-26 14:45 | NUR ---
PRN REASSESSMENT Patient expresses feeling less nauseated. Zofran and Bentyl were effective. Will continue to monitor patient.
--- NOTE | 2017-02-26 14:46 | NUR ---
PRN REASSESSMENT Patient expresses leg pain has decreased from a 7/10- to 4/10. medication effective. will continue to monitor patient.
[2017-02-26 16:00] VITALS: BP 129/80
--- NOTE | 2017-02-26 18:50 | NUR ---
DISCHARGE NOTE Patient is in stable condition. Vital signs WNL, patient is alert and orientated X4, skin intact. Patient denies any suicidal or homicidal ideations. Patient also denies any auditory or visual hallucinations. All discharge paperwork completed dated and signed. Patient educated about discharge instructions, what to do after discharge and when to contact MD as well as the S/S reportable to MD. Patient verbalized understanding. Patients last CIWA was 5 COWS 4. Patient was discharge from [facility] on 02/26/17 at 1850. Patient was discharge to home. Patient left the building with all of his belongings and prescriptions. MD has been contacted and notified of patients discharge.
== END 2017-02-26 18:50 | disposition home or self-care (01) | DRG 895 ==
LOC: SRC 15:13 → EDBD 15:13
PROVIDERS: ADMIT Internal Medicine; ATTEND Internal Medicine
PROC: HZ2ZZZZ Detoxification Services for Substance Abuse Treatment (ICD-10-PCS; principal; 2017-02-19)
PROC: HZ31ZZZ Individual Counseling for Substance Abuse Treatment, Behavioral (ICD-10-PCS; 2017-02-20)
PROC: HZ41ZZZ Group Counseling for Substance Abuse Treatment, Behavioral (ICD-10-PCS; 2017-02-21)
DX: F13.230 Sedative, hypnotic or anxiolytic dependence with withdrawal, uncomplicated (principal); F32.1 Major depressive disorder, single episode, moderate; D64.9 Anemia, unspecified; Z82.49 Family history of ischemic heart disease and other diseases of the circulatory system; Z81.8 Family history of other mental and behavioral disorders; Z81.1 Family history of alcohol abuse and dependence; Z81.3 Family history of other psychoactive substance abuse and dependence; F17.220 Nicotine dependence, chewing tobacco, uncomplicated; F41.9 Anxiety disorder, unspecified; F12.10 Cannabis abuse, uncomplicated; Z91.19 Patient's noncompliance with other medical treatment and regimen
CPT/HCPCS: 36415; 70030-TC; 80307; 80346; 80349; 80361; 83735; 84443; 85025; 86580; 86592; 86705; 86803; 87340; 87806; A4663; G0480; J1885; J2405; Q0162; Q0163